=== PATIENT | male | born 1985 | race Caucasian/White ===

== ENCOUNTER 2024-11-24 15:56 | Emergency (ER) | payer SELFPAY ==
[2024-11-24 16:06] VITALS: BP 166/101; PULSE 108; RESP 18; TEMP 98.8; BMI 29.7
[2024-11-24] MEDS ORDERED: valACYclovir HCL 500 MG TABLET (FP) ONE (16:41)
[2024-11-24] MEDS ORDERED: predniSONE 20 MG TABLET (UD) ONE (16:41)
[2024-11-24] MEDS ORDERED: ACETAMINOPHEN 500 MG TABLET (FP) ONE (16:43)
[2024-11-24] MEDS: predniSONE 20 MG TABLET (UD) PO ONE (17:10)
[2024-11-24] MEDS: ACETAMINOPHEN 500 MG TABLET (FP) PO ONE (17:10)
[2024-11-24] MEDS: valACYclovir HCL 500 MG TABLET (FP) PO ONE (17:10)
[2024-11-24 17:14] LABS: ABSOLUTE IMMATURE GRANULOCYTES 0.04 x10^3/uL (0.0-0.031); BASOPHILS # 0.05 x10^3/uL (0.01-0.08); EOSINOPHIL % 0.4 % (0.8-7.0); EOSINOPHILS # 0.04 x10^3/uL (0.04-0.54); HEMATOCRIT 45.3 % (40.1-51.0); HEMOGLOBIN 15.4 g/dL (13.7-17.5); MEAN CELL VOLUME 86.5 fl (79.0-92.2); MEAN PLT VOLUME 11.2 fl (9.4-12.4); MONOCYTE # 0.82 x10^3/uL (0.30-0.82); MONOCYTE % 8.2 % (5.3-12.2); PLATELET COUNT 223 x10^3/uL (163-337); RDW 11.5 % (12.0-15.6)
[2024-11-24 17:41] LABS: POTASSIUM 4.1 mmol/L (3.5-5.1)
[2024-11-24 17:42] LABS: CALCIUM 9.5 mg/dL (8.5-10.1)
[2024-11-24 17:43] LABS: BLOOD UREA NITROGEN 16.8 mg/dL (7-18)
[2024-11-24 17:46] LABS: CREATININE 0.7 mg/dL (0.55-1.3)
[2024-11-24 17:48] LABS: TOT PROT 7.8 g/dl (6.4-8.2)
[2024-11-24 18:38] LABS: HCV DIAGNOSTIC IN-HOUSE W/RFLX NON-REACTIVE (NONREACTIVE); HIV INTERPRETATION NEGATIVE (NEGATIVE)
== END 2024-11-24 18:10 | disposition home or self-care (01) ==
LOC: JER 15:56
DX: G51.0 Bell's palsy (principal); R73.9 Hyperglycemia, unspecified; R03.0 Elevated blood-pressure reading, without diagnosis of hypertension; R00.0 Tachycardia, unspecified
CPT/HCPCS: 36415; 80053; 85025; 86618; 86803; 87389; 99283-25